=== PATIENT | male | born 1965 | race Caucasian/White ===

== ENCOUNTER 2019-08-18 17:21 | Emergency (ER) | payer MEDICARE ==
--- NOTE | 2019-08-18 18:08 | CT ---
Exam: CT brain PROVIDED CLINICAL HISTORY: Recent falls COMPARISON: None FINDINGS: The ventricular system is normal in size and morphology. No evidence for intracranial hemorrhage or mass effect. The extracranial soft tissues and osseous structures demonstrate no evidence for an acute abnormality. IMPRESSION: No evidence for intracranial hemorrhage or mass effect.
--- NOTE | 2019-08-18 18:11 | CT ---
EXAM: CT cervical spine PROVIDED CLINICAL HISTORY: Recent falls COMPARISON: None FINDINGS: No evidence for fracture or traumatic subluxation. No prevertebral soft tissue swelling apparent. Th ere are several small patchy foci of partially visualized groundglass opacity involving each lung apex. IMPRESSION: 1. No evidence for fracture or traumatic subluxation. 2. Small patchy foci of groundglass attenuation involving each lung apex, nonspecific. Correlate with concerns for infectious or inflammatory pneumonitis.
[2019-08-18 18:16] LABS: #Lymphocytes 1.1 thou/uL (1.20-3.40); #Monocytes 0.5 thou/uL (0.11-0.59); #Neutrophils 2.1 thou/uL (1.40-6.50); %Basophils 0.9 % (0.0-1.0); %Eosinophils 1.1 % (0.0-10.0); %Lymphocytes 28.8 % (21.0-51.0); %Monocytes 13.4 % (0.0-10.0); %Neutrophils 55.9 % (42.0-75.0); Hemoglobin 13.2 g/dL (14.0-18.0); Mean Corpuscular HGB CONC 34.9 g/dL (32.0-36.0); Mean Corpuscular Hemoglobin 36.7 pg (27.0-31.0); RBC Distribution Width 15.3 % (11.5-14.5); White Blood Cell (WBC) Count 3.7 thou/uL (4.8-10.8)
[2019-08-18 18:40] LABS: INR-International Normal Ratio 1.2; PTT 36.3 SEC (22.9-36.1); Prothrombin Time 14.8 SEC (12.0-14.7)
[2019-08-18 18:41] LABS: Bilirubin Negative (Negative); Blood, Urine Negative (Negative); Clarity Clear (Clear); Glucose, Urine (Dipstick) Normal (Negative); Leukocyte Negative Leu/uL (Negative); Nitrite Negative (Negative); Protein, Urine (Dipstick) 10 mg/dL (Neg-Trace)
[2019-08-18 18:41] LABS: Large Platelets SLIGHT; MDiff Complete? YES; Macrocytosis MODERATE=16-30 cells (100X) (0-5/hpf); Mean Platelet Volume 12.1 fL (7.4-10.4); Platelet Count 38 thou/uL (130-400); Platelet Morphology Comment Appears Decreased; Polychromasia SLIGHT = 2-3 cells (100X) (0-2/hpf); Target Cells SLIGHT = 2-5 cells (100X) (0-1/hpf)
[2019-08-18 18:47] LABS: ALT (SGPT) 32 U/L (8-55); AST (SGOT) 90 U/L (5-34); Albumin 3.9 g/dL (3.5-5.0); Alkaline Phosphatase 173 U/L (40-110); Anion Gap 16 mmol/L (10-20); BUN (Urea Nitrogen) 7 mg/dL (8.4-25.7); Bilirubin, Total 2.1 mg/dL (0.2-1.2); Calc. Creatinine Clearance 0 mL/min (70-130); Calcium 8.6 mg/dL (7.8-10.44); Carbon Dioxide 24 mmol/L (22-29); Chloride 107 mmol/L (98-107); Estimated GFR-MDRD Greater than 90; Glucose 117 mg/dL (70-105); Potassium 3.5 mmol/L (3.5-5.1); Protein, Total 6.9 g/dL (6.0-8.3); Sodium 143 mmol/L (136-145)
[2019-08-18 18:51] LABS: Acetaminophen Less than 6.0 mcg/mL (10.0-30.0); Salicylate Less than 8.0 mg/dL (15.0-30.0)
[2019-08-18 18:54] LABS: Alcohol 428 mg/dL (Less than 10)
[2019-08-18 18:56] LABS: Reticulocyte Count 1.8 % (0.5-1.5)
[2019-08-18] MEDS ORDERED: Multivitamins, Adult 10 ML, Thiamine HCl 100 MG, Folic Acid 1 MG in Dextrose 5 %-0.45 %... IV ONE (19:15)
== END 2019-08-18 22:01 | disposition home or self-care (01) ==
LOC: ERS 17:21
DX: F10.129 Alcohol abuse with intoxication, unspecified (principal); D61.818 Other pancytopenia; D64.9 Anemia, unspecified; D72.819 Decreased white blood cell count, unspecified; G35 Multiple sclerosis; I10 Essential (primary) hypertension; F32.9 Major depressive disorder, single episode, unspecified; Y90.9 Presence of alcohol in blood, level not specified; Z79.899 Other long term (current) drug therapy
CPT/HCPCS: 36415; 70450; 72125; 80053; 80307; 81003; 82140; 84484; 85025; 85046; 85610; 85730; 93005; 96365; 96366; J3411; J7042